=== PATIENT | female | born 1975 | race Two or more races ===

== ENCOUNTER → 2017-05-18 | Emergency (ER) | payer SELFPAY ==
[~2017-05-18] VITALS: Ht 167.6 cm; Wt 65.8 kg
[~2017-05-18] MED LIST: BACI/NEOM/POLY B OINT PKT 1 UDPKT PACKET TP ONE
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
--- NOTE | 2017-05-18 01:55 | NUR ---
PATIENT LEFT WITHOUT PAPERWORK
[2017-05-18 02:32] VITALS: BP 165/100
== END | disposition home or self-care (01) ==
LOC: ER 01:36
DX: S02.81XA Fracture of other specified skull and facial bones, right side, initial encounter for closed fracture (principal); S09.8XXA Other specified injuries of head, initial encounter; G51.0 Bell's palsy; F10.129 Alcohol abuse with intoxication, unspecified; J45.909 Unspecified asthma, uncomplicated; Z88.0 Allergy status to penicillin; V43.52XA Car driver injured in collision with other type car in traffic accident, initial encounter; Y93.89 Activity, other specified; Y92.413 State road as the place of occurrence of the external cause; Y99.8 Other external cause status
CPT/HCPCS: 99283; A4606 ×2; J7040; Z7610 ×2